=== PATIENT | male | born 1960 | race Caucasian/White ===

== ENCOUNTER 2024-01-13 08:10 | Day surgery (SDC) | payer OTHER, SELFPAY ==
[2024-01-06 13:53] LABS: % Basophils 0.5 % (0-2); % Eosinophils 3.5 % (0-6); % Immature Granulocytes 0.4 % (0-0.5); % Lymphocytes 22.5 % (20.5-51.1); % Monocytes 7.5 % (1.7-9.3); % Neutrophils 65.6 % (42.2-75.2); Absolute Eosinophils 0.3 10^3/uL (0-0.7); Absolute Lymphocytes 1.7 10^3/uL (1.2-3.4); Absolute Monocytes 0.6 10^3/uL (0.1-0.6); Absolute Neutrophils 4.8 10^3/uL (1.4-6.5); Hematocrit 40.8 % (39.0-52.0); Hemoglobin 13.4 g/dL (13.0-18.0); Mean Corp Hgb Conc. 32.8 g/dL (33.0-37.0); Mean Corpuscular Hgb 29.1 pg (27.0-31.0); Mean Corpuscular Volume 88.5 fL (80.0-94.0); Mean Platelet Volume 10.3 fL (7.4-10.4); Nucleated Red Blood Cells % 0 % (-); Platelet Count 215 10^3/uL (130-400); Red Blood Cell Count 4.61 10^6/uL (4.70-6.10); Red Cell Dist. Width 14.7 % (11.5-14.5); White Blood Cell Count 7.4 10^3/uL (4.8-10.8)
[2024-01-06 13:55] VITALS: BMI 37.7
[2024-01-06 14:03] LABS: INR 1.15; PT 14.5 Sec (11.4-14.6)
[2024-01-06 14:12] LABS: ALT (SGPT) 29 U/L (0-50); AST (SGOT) 32 U/L (17-59); Albumin 4.6 g/dl (3.5-5.0); Alkaline Phosphatase 82 U/L (38-126); Blood Urea Nitrogen 27 mg/dl (9-20); Calcium 9.6 mg/dl (8.4-10.2); Carbon Dioxide 28 mmol/L (22-30); Chloride 107 mmol/L (98-107); Estimated Creatinine Clearance 48 ml/min; Glucose 86 mg/dl (70-99); Potassium 4.9 mmol/L (3.5-5.1); Sodium 145 mmol/L (135-145); Total Bilirubin 0.6 mg/dl (0.2-1.3); Total Protein 7.3 g/dl (6.3-8.2); eGFR 44.18
[2024-01-13] VITALS (13 sets, daily range): BP systolic 76–152; BP diastolic 55–76; BMI 37.1
[2024-01-13 11:52] LABS: ACT-LR - POC 292 Seconds (116-155)
[2024-01-13 12:13] LABS: ACT-LR - POC 285 Seconds (116-155)
[2024-01-13 12:28] LABS: ACT-LR - POC 326 Seconds (116-155)
[2024-01-13 12:37] LABS: ACT-LR - POC 150 Seconds (116-155)
--- NOTE | 2024-01-13 13:02 | ITS.CL.ABL ---
[employer] - Ablation
Ablation
Procedure Report:
Primary Physician: Merissa Childers DO
Primary Blunger Loader: Jason Jensen MD
Procedure Date: 01/13/2024
Procedure
Electrophysiology Study
Left atrial recording / pacing
IV drug for arrhythmia induction
Transseptal
Electroanatomic mapping
Intracardiac ultrasound
Patient History
Patient is a pleasant 63-year-old male with a history of hypertension, osteoarthritis, hypercholesterolemia, obesity, CKD 3A, and symptomatic paroxysmal atypical atrial flutter. Patient noted to have atypical atrial flutter September 2023 noted on ER EKG
with return to sinus rhythm with diltiazem. Patient had no further episodes of atrial flutter. Event monitor demonstrated no AF or AFL. Patient presenting today for lecture physiology study and possible atrial flutter ablation.
Method
After informed consent was obtained, the patient was brought to the EP lab in a post-absorptive, non-sedated state. A peripheral IV was in place. Continuous electrocardiography, blood pressure and pulse oximetry monitoring was initiated and
cardioversion / defibrillator electrodes were positioned on the chest in an AP orientation. A 'time-out' was called. Conscious sedation was administered with the assistance of the anesthesia services, and local anesthesia was given at the femoral
vein access sites.
Using modified Seldinger technique, vascular access was achieved and sheaths were placed. Multipolar catheters were advanced to the coronary sinus. Pacing and recording CS / LA was performed.
Intracardiac ultrasound (ICE) was carefully advanced into the right atrium to guide sheath placement over a J-wire, catheter placement, guide trans-septal puncture, identify potential complications, identify anatomic structures and ensure proper
contact between ablation catheter and tissue.
Arrhythmia induction was attempted using CS pacing at baseline. Electrophysiology study was performed. Using double extrastimuli as well as burst pacing, patient was noninducible for atrial flutter or SVT. Patient was started on increasing doses
of isoproterenol with appropriate affect. Again, patient was noninducible for atrial arrhythmias, atrial flutter, or SVT. Despite aggressive pacing protocol, patient remained noninducible. Next, given morphology of atypical atrial flutter noted
on EKG 09/2023, left atrial mapping was performed.
Heparin was given prior to HD grid and trans-septal puncture. Heparin was given to achieve and maintain a target ACT of 300-400 seconds throughout the procedure.
Trans-septal access was performed under ICE guidance. The trans-septal puncture was performed with a SafeSept wire through a Brockenbrough needle assembly through the steerable sheath. The wire was visualized as it entered the LSPV and system
advanced under ICE guidance and fluoroscopy into the LA. The Brockenbrough needle assembly, SafeSept wire and sheath dilator were removed under negative pressure. LA pressure was measured and recorded.
ICE and 3D mapping was performed to identify relevant cardiac structures. A careful 3D map was created to assess for regions of low-voltage and abnormal electrogram signals using HD grid mapping catheter. Left atrial map demonstrated high voltage
signals and no evidence of atrial scarring. Pacing from the posterior wall of the left atrium, patient will remained noninducible for atrial flutter or SVT. During procedure, there was no evidence of atrial fibrillation or other arrhythmias.
At the end of the procedure, all catheters and sheaths were removed and hemostasis was assured with [id number] and vascade. Protamine was given. The patient was returned to the recovery area in stable condition.
Access Sites:
Right Femoral Vein: 2 sheaths (9 Fr upsized to 12 Fr, 10 Fr, 7 Fr)
Baseline Intervals:
Rhythm: Sinus Rhythm
VT: 122 ms
QRS: 74 ms
QT: 359 ms
QTc: 365 ms
A-A: 968 ms
R-R: 968 ms
AVWB at 340 ms
AV Node ERP 550/280 ms
Fluoroscopy time:
3.0 min; 38.5 mGy; DAP 4.2
Estimated Blood Loss
5 mL
Complications
None
Recommendations
- Anticipate same-day discharge as patient meets clinical metrics
- Bedrest with straight-leg precautions 4 hours
- Continue home medications as indicated including OAC
- Follow-up in office as scheduled
- If recurrence of AFL, can consider flecainide as AAM
Christian Morales DO
Clinical Cardiac Electrophysiology
cc: Merissa Childers DO; Jason Jensen MD
--- NOTE | 2024-01-16 09:49 | OID.L.PAT ---
Pulmonary Nodule Pat Letter
- -
01/16/24
MELANIE CARRASCO
[address] [facility]
[place] [id number]
Dear MELANIE,
A pulmonary nodule was seen on an imaging study done by [facility]. This was reviewed by the [facility] Pulmonary Nodule Advisory Board and the following recommendation was made:
Recommendation: Follow up CT Chest in one year
If you have any questions, please do not hesitate to contact your primary care physician. If you are in need of a Physician, you can go to [email or web address] and click on 'Find a Provider'. Type 'Family Medicine' in the search.
Oncology Nurse Navigator
[facility]
[phone]
--- NOTE | 2024-01-16 09:49 | OID.L.REC ---
Pulmonary Nodule Follow Up
- Recommendation
01/16/24
Pulmonary Nodule Review Recommendations
Your patient, MELANIE CARRASCO, had a pulmonary nodule seen on an imaging study done on 01/06/24 in the [facility] Department.
This was reviewed by the [facility] Pulmonary Nodule Advisory Board and the following recommendation was made:
Recommendation: Follow up CT Chest in one year
If you have any questions please do not hesitate to contact us.
Sincerely,
Oncology Nurse Navigator
[facility]
[phone]
== END 2024-01-13 17:15 | disposition home or self-care (01) ==
LOC: CATH 08:10
PROVIDERS: ATTENDING PHYSICIAN Internal Medicine Cardiovascular Disease; FAMILY PHYSICIAN Family Medicine
DX: E66.9 Obesity, unspecified (principal); E78.00 Pure hypercholesterolemia, unspecified; I12.9 Hypertensive chronic kidney disease with stage 1 through stage 4 chronic kidney disease, or unspecified chronic kidney disease; N18.31 Chronic kidney disease, stage 3a; I48.4 Atypical atrial flutter
CPT/HCPCS: 93620; C1732; C1894; C1769; 36415; 75572; 80053; 83735; 85025; 85347; 85610; 86850; 86900; 86901; 93005; 93602; 93610; 93613; 93621; 93623; C1730; C1760; C1892; Q9967